=== PATIENT | male | born 1955 | race Caucasian/White ===

== ENCOUNTER 2020-05-02 19:55 | Emergency (ER) | payer SELFPAY ==
--- NOTE | 2020-05-02 20:36 | ER Document Report ---
ED Medical Screen (RME) - General Chief Complaint: Facial Swelling Stated Complaint: TOOTHACHE, SWOLLEN FACE Time Seen by Provider: 05/02/20 20:19 Mode of Arrival: Ambulatory Information source: Patient Notes: HPI; 64-year-old male presents emergency room stating that he noticed left-sided facial droop which and swelling the left side of his face yesterday afternoon around 2:30 PM. Today family noticed that it was worse. States he did call EMS who came out to his home around 5:30 PM and did an assessment and told him he was not having a stroke that it looked like it was a dental infection. Patient denies any dental pain. Denies any fevers. Did not take any medications for symptoms. No history of previous strokes or TIAs. PE: Alert and oriented x3. Mild distress noted. Obvious left-sided facial droop is noted. Left eye just tearing. Unable to raise left eyebrow. Tongue deviation to the right. Normal sensation to painful and light stimuli of the face and upper extremities. 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 Lungs: Clear to auscultation without rales, rhonchi, wheezes. Heart: Regular rate and rhythm without murmurs, rubs, gallops I have greeted and performed a rapid initial assessment of this patient. A comprehensive ED assessment and evaluation of the patient, analysis of test results and completion of the medical decision making process will be conducted by additional ED providers. I have specifically instructed the patient or family members with the patient to immediately return to any nursing staff should anything change in the patient's condition or with their chief complaint. TRAVEL OUTSIDE OF THE [place] IN LAST 30 DAYS: No - Related Data Allergies/Adverse Reactions: No Known Allergies Allergy (Unverified 01/31/14 04:09) Past Medical History - Social History Chew tobacco use (# tins/day): No Frequency of alcohol use: Occasional Drug Abuse: Marijuana Renal/ Medical History: Reports: Hx Kidney Stones Past Surgical History: Reports: Hx Bowel Surgery - perforated bowel repair 1979, Hx Kidney (Renal Surgery) - lithotropsy - Immunizations Hx Diphtheria, Pertussis, Tetanus Vaccination: No Physical Exam - Vital signs Vitals: Temp Pulse Resp BP Pulse Ox 98.8 F 80 18 139/71 H 98 05/02/20 20:17 05/02/20 20:17 05/02/20 20:17 05/02/20 20:17 05/02/20 20:17 Course - Vital Signs Vital signs: Temp Pulse Resp BP Pulse Ox 98.8 F 80 18 139/71 H 98 05/02/20 20:17 05/02/20 20:17 05/02/20 20:17 05/02/20 20:17 05/02/20 20:17
--- NOTE | 2020-05-02 21:05 | RADIOLOGY REPORT (SQ) ---
EXAM DESCRIPTION: CT HEAD WITHOUT IV CONTRAST COMPLETED DATE/TME: 05/02/2020 20:31 CLINICAL HISTORY: 64 years, Male, facial droop COMPARISON: None. TECHNIQUE: Noncontrast images of the brain were obtained. Images stored on PACS. All CT scanners at this facility use dose modulation, iterative reconstruction, and/or weight based dosing when appropriate to reduce radiation dose to as low as reasonably achievable (ALARA). [facility]: Dose Right [facility]: CareDose [facility]: Dose Right [facility]: Teradose 4D [facility]: [employer] LIMITATIONS: None. FINDINGS: There is no acute intracranial hemorrhage, abnormal mass effect, or major vascular territorial infarction. There is no hydrocephalus. Calvarium is intact. Paranasal sinuses are clear. There is a moderate right mastoid effusion. IMPRESSION: No acute intracranial abnormality is seen. There is a right mastoid effusion for which clinical correlation is recommended. TECHNICAL DOCUMENTATION: Quality ID # [id number]: Final reports with documentation of one or more dose reduction techniques (e.g., Automated exposure control, adjustment of the mA and/or kV according to patient size, use of iterative reconstruction technique) copyright 2011 [facility]- All Rights Reserved
--- NOTE | 2020-05-02 21:38 | ER Document Report ---
Entered by TEVIN PALENCIA SCRIBE 05/02/202046 Acting as scribe for:FLORENCIO CUETO DO ED Oral Problem - General Chief Complaint: Facial Swelling Stated Complaint: TOOTHACHE, SWOLLEN FACE Time Seen by Provider: 05/02/20 20:19 Mode of Arrival: Ambulatory Information source: Patient Notes: This 64 year old male patient presents to the emergency department today with complaints of facial asymmetry which he first noticed this morning up awakening. Patient reports yesterday he noticed that he could not "completely seal his mouth" when drinking a beverage. Patient states he did not think anything of it yesterday, mentioning he thought he may have "bit his lip". Patient states this morning everyone he saw mentioned to him that his face seemed asymmetric. TRAVEL OUTSIDE OF THE [place] IN LAST 30 DAYS: No - Related Data Allergies/Adverse Reactions: No Known Allergies Allergy (Unverified 01/31/14 04:09) Past Medical History - General Information source: Patient - Social History Smoking Status: Never Smoker Cigarette use (# per day): No Chew tobacco use (# tins/day): No Frequency of alcohol use: Occasional Drug Abuse: Marijuana Lives with: Family Family History: Reviewed & Not Pertinent Renal/ Medical History: Reports: Hx Kidney Stones Past Surgical History: Reports: Hx Bowel Surgery - perforated bowel repair 1979, Hx Kidney (Renal Surgery) - lithotropsy - Immunizations Hx Diphtheria, Pertussis, Tetanus Vaccination: No Review of Systems - Review of Systems Constitutional: No symptoms reported EENT: See HPI, Mouth swelling, Dental problem Cardiovascular: No symptoms reported Respiratory: No symptoms reported Gastrointestinal: No symptoms reported Genitourinary: No symptoms reported Male Genitourinary: No symptoms reported Musculoskeletal: No symptoms reported Skin: No symptoms reported Hematologic/Lymphatic: No symptoms reported Neurological/Psychological: denies: Weakness, Speech impairment, Numbness -: Yes All other systems reviewed and negative Physical Exam - Vital signs Vitals: Temp Pulse Resp BP Pulse Ox 98.8 F 80 18 139/71 H 98 05/02/20 20:17 05/02/20 20:17 05/02/20 20:17 05/02/20 20:17 05/02/20 20:17 - Notes Notes: Physical Exam: General: Alert, appears well. HEENT: Normocephalic. Atraumatic. PERRL. Extraocular movements intact. Bubba pharynx clear. Unable to completely close left eye. Left forehead sparing. Poor dentition throughout. Neck: Supple. Non-tender. Respiratory: No respiratory distress. Clear and equal breath sounds bilaterally. Cardiovascular: Regular rate and rhythm. Abdominal: Normal Inspection. Non-tender. No distension. Normal Bowel Sounds. Back: No gross abnormalities. Extremities: Moves all four extremities. Upper extremities: Normal inspection. Normal ROM. Lower extremities: Normal inspection. No edema. Normal ROM. Neurological: Normal cognition. AAOx4. Normal speech. Psychological: Normal affect. Normal Mood. Skin: Warm. Dry. Normal color. 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 Will place on acylovir as he has no insurance to defray cost. Additionally, will not give steroids with the DM and blood sugar already elevated. Discussed follow up and return precautions and he expressed understanding. - Vital Signs Vital signs: Temp Pulse Resp BP Pulse Ox 98.8 F 80 18 151/84 H 94 05/02/20 20:17 05/02/20 20:17 05/02/20 22:01 05/02/20 22:00 05/02/20 22:01 - Laboratory Result Diagrams: 05/02/20 21:31 05/02/20 21:31 Laboratory results interpreted by me: 05/02/20 05/02/20 21:31 21:31 Hgb 13.3 L Sodium 134.4 L Glucose 189 H AST 13 L - Diagnostic Test Radiology reviewed: Image reviewed, Reports reviewed Discharge - Discharge Clinical Impression: Cody's palsy, Dental caries Diabetes mellitus Qualifiers: Diabetes mellitus type: type 2 Diabetes mellitus intermediate insulin use: with intermediate use Diabetes mellitus complication status: with other specified complication Qualified Code(s): E11.69 - Type 2 diabetes mellitus with other specified complication; Z79.4 - snf (current) use of insulin Hyperglycemia due to type 2 diabetes mellitus Qualifiers: Diabetes mellitus intermediate insulin use: with intermediate use Qualified Code(s): E11.65 - Type 2 diabetes mellitus with hyperglycemia; Z79.4 - snf (current) use of insulin Condition: Stable Disposition: HOME, SELF-CARE Instructions: Toothache ([facility]), Cody's Palsy ([facility]), Control of Diabetes During Illness ([facility]), Diabetes ([facility]), Family Physicians / Practices Additional Instructions: Follow your diabetic diet. Rest. Take your medicine as directed. Please return here for any problems or any concerns. Your blood pressure was elevated a bit and should be rechecked. Forms: Elevated Blood Pressure I personally performed the services described in the documentation, reviewed and edited the documentation which was dictated to the scribe in my presence, and it accurately records my words and actions.
[2020-05-02 21:51] LABS: ABSOLUTE BASOPHILS # (AUTO) 0.1 10^3/uL (0.0-0.2); ABSOLUTE EOSINOPHILS # (AUTO) 0.3 10^3/uL (0.0-0.6); ABSOLUTE MONOCYTES (AUTO) 0.5 10^3/uL (0.1-1.4); ABSOLUTE NEUT (AUTO) 4.4 10^3/uL (1.7-8.2); BASOPHILS % (AUTO) 1.2 % (0-2); EOSINOPHILS % (AUTO) 3.6 % (0-6); HEMATOCRIT 39.2 % (37.9-51.0); HEMOGLOBIN 13.3 g/dL (13.5-17.0); LYMPHOCYTES % (AUTO) 27.6 % (13-45); MEAN CORPUSCULAR HEMOGLOBIN 29.3 pg (27.0-33.4); MEAN CORPUSCULAR HGB CONC 33.9 g/dL (32.0-36.0); MEAN CORPUSCULAR VOLUME 86 fl (80-97); MONOCYTES % (AUTO) 7.4 % (3-13); PLATELET COUNT 264 10^3/uL (150-450); RED BLOOD COUNT 4.54 10^6/uL (4.35-5.55); RED CELL DISTRIBUTION WIDTH 13.9 % (11.5-14.0); SEGMENTED NEUTROPHILS % (AUTO) 60.2 % (42-78); TOTAL CELLS COUNTED % (AUTO) 100 %; WHITE BLOOD COUNT 7.3 10^3/uL (4.0-10.5)
[2020-05-02 22:04] VITALS: BP 151/84
[2020-05-02 22:11] LABS: ALKALINE PHOSPHATASE 70 U/L (38-126); ANION GAP 5 (5-19); ASPARTATE AMINO TRANSFERASE 13 U/L (17-59); BILIRUBIN,TOTAL 0.3 mg/dL (0.2-1.3); BLOOD UREA NITROGEN 16 mg/dL (7-20); C-REACTIVE PROTEIN 9.6 mg/L (<10.0); CALCIUM 9.5 mg/dL (8.4-10.2); CARBON DIOXIDE 28 mmol/L (22-30); CHLORIDE 102 mmol/L (98-107); GLUCOSE 189 mg/dL (75-110); POTASSIUM 4.2 mmol/L (3.6-5.0); TOTAL PROTEIN 7.6 g/dL (6.3-8.2)
[2020-05-02] MEDS ORDERED: AMOXICILLIN TRIHYDRATE 500 MG CAPSULE PO ONE (22:26)
[2020-05-02] MEDS ORDERED: ACYCLOVIR 800 MG TABLET PO ONE (22:26)
[2020-05-02] MEDS ORDERED: ACYCLOVIR 800 MG TABLET ONE (22:54)
== END 2020-05-02 23:10 | disposition home or self-care (01) ==
LOC: ER 19:55
DX: K02.9 Dental caries, unspecified (principal); G51.0 Bell's palsy; E11.65 Type 2 diabetes mellitus with hyperglycemia; R22.0 Localized swelling, mass and lump, head; F12.10 Cannabis abuse, uncomplicated; Z79.4 Long term (current) use of insulin; Z20.828 Contact with and (suspected) exposure to other viral communicable diseases
CPT/HCPCS: 99284; 36415; 85025; 87635; 86140; 80053; 70450; C9803; J3490